=== PATIENT | female | born 1995 | race Caucasian/White ===

== ENCOUNTER 2016-08-29 11:55 | Emergency (ER) | payer OTHER ==
[2016-08-29] MEDS ORDERED: METOCLOPRAMIDE INJ 10MG/2ML VIAL (J2765) As Ordered ONE (13:32)
[2016-08-29 13:51] LABS: CONTROL LINE UCG INT CTR LINE PRESENT
[2016-08-29 14:01] LABS: CALCIUM OXALATE CRYSTALS SMALL
[2016-08-29] MEDS ORDERED: KETOROLAC 30 MG/ML VIAL (J1885) As Ordered ONE (14:24)
[2016-08-29] MEDS ORDERED: ONDANSETRON 4MG/2ML VIAL (J2405) As Ordered ONE (17:22)
--- NOTE | 2016-08-29 17:48 | REP ---
Clinical: Midline pelvic pain extending to the right lower quadrant. Rule out appendicitis. Technique: Real time hinojosa scale ultrasound examination of the right lower quadrant using curved array transducer. Findings: Directed ultrasound examination of the right lower quadrant demonstrates a normal structures without fluid collection, mass lesion, or significant adenopathy. Peristalsis of visualized bowel noted. The appendix is not visualized. No transducer tenderness noted. Impression: While the appendix is not visualized, no secondary sonographic evidence to suggest acute appendicitis. Signed by Benigno Cazares MD 08/29/2016 05:40 P
--- NOTE | 2016-08-29 17:50 | REP ---
Clinical: Pelvic pain. Rule out torsion . Technique: Transabdominal pelvic ultrasound with color Doppler evaluation of the ovaries. Findings: Bladder is unremarkable and measures 9.7 x 9.5 x 5.4 cm . Normal anteverted uterus measures 7.7 x 2.5 x 3.7 cm . The endometrial complex measures 2.7 mm thickness. No discrete uterine or endometrial abnormalities are appreciated. Bilateral ovaries are normal in appearance and vascularity without evidence for torsion. Right ovary measures 3.5 x 1.4 x 3.6 cm ; R I = 0.60 . Left ovary measures 2.9 x 1.8 x 2.9 cm ; R I = 0.69 . No pelvic fluid or adnexal mass lesion. . Impression: 1. Normal pelvic ultrasound. No evidence for torsion. Signed by Benigno Cazares MD 08/29/2016 05:42 P
--- NOTE | 2016-08-29 18:18 | EDDOCDS ---
Nurse's Notes [facility] Name: Nancy Ash Age: 21 yrs Sex: Female : 1995 Arrival Date: 08/29/2016 Time: 11:55 Bed 17 Private MD: NO PRIMARY PHYSICIAN, . Diagnosis: Vomiting Presentation: 08/29 12:09 Presenting complaint: Patient states: N/V and lower abd pain since this am. Drank a lot po last night without eating. Risk factors: the patient reports no vaginal bleeding. Adult Sepsis Screening: The patient does not have new or worsening altered mentation. Patient's respiratory rate is less than 22. Systolic blood pressure is greater than 100. Patient has a qSOFA score of 0- Negative Sepsis Screen. Suicide/Homicide risk assessment- the patient denies having any suicidal and/or homicidal ideations and does not present with any other emotional, behavioral or mental health complaints. Status: The patient is a dependent. Transition of care: patient was not received from another setting of care. 12:09 Acuity: ANDREW Level 3 po 12:09 Method Of Arrival: Walkin/Carried/Asstd po Triage Assessment: 12:10 General: Appears in no apparent distress, Behavior is appropriate for age. Pain: po Location: abdomen Pain currently is 10 out of 10 on a pain scale. Is continuous. HIV screening NA for this visit Offered previously. Neurological: No deficits noted. Respiratory: Airway is patent Respiratory effort is even, unlabored. GI: Reports lower abdominal pain, nausea, vomiting. 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 none - PMHx: none; - PSHx: none; - Social history: Smoking status: Patient uses tobacco products, current some day smoker. No barriers to communication noted, The patient speaks fluent Norwegian. - Family history: Not pertinent. - : The pt / caregiver states he / she is not on anticoagulants. Home medication list is obtained from the patient. - Exposure Risk Screening:: None identified. Screenin:05 Screening information is obtained from the patient. Primary language is Norwegian. Fall dls risk: No risks identified. Assistance ADL's: requires no assistance with activities of daily living. Abuse/DV Screen: The patient / caregiver reports he/she is: not in a situation that causes fear, pain or injury. Nutritional screening: No deficits noted. Advance Directives: Currently, there is no health care proxy. There is no active DNR order. There is no living will. There is no Power of Burial Vault Maker. Advance directive information has not previously been placed in an [facility] medical record. home support is adequate. Assessment: 14:04 General: Appears distressed, uncomfortable, well developed, well nourished, well dls groomed, Behavior is anxious, cooperative. Awake, alert, oriented. Skin warm and dry. Moves all extremities. Bilateral breath sounds clear. Respirations unlabored. The patient / caregiver is instructed regarding the plan of care and ED course. 15:37 General: IV bolus #2 infusing well pt continues to c/o nausea and abdominal pain "just dls wants to sleep" Mother at bedside.. 16:15 General: IV bolus infusing vital signs remain stable pt eating crackers and sipping dls gingerale.. 17:36 General: Pt returned from ultrasound appears much improved pt is now smiling medicated dls pt IV for nausea Dr Wyman in to re examine pt.. 18:08 General: Color has improved tolerating po fluids well feels much improved.. [facility] Vital Signs: 11:56 BP 145 / 80; Pulse 90; Resp 18; Temp 97.3(O); Pulse Ox 100% on R/A; Weight 63.5 kg; elp Height 5 ft. 3 in. (160.02 cm); Pain 10/10; 16:09 BP 101 / 50; Pulse 69; Resp 20; Temp 99.7(TE); Pulse Ox 100% on R/A; dls 18:11 BP 115 / 65; Pulse 103; Resp 18; Temp 99.5; Pulse Ox 98% ; Pain 3/10; jlf 11:56 Body Mass Index 24.80 (63.50 kg, 160.02 cm) [facility] Vitals: 11:56 Log In Time: August 29, 2016 at 11:54. [facility] ED Course: 11:56 Patient visited by Leanna Hardy PCA. elp 11:56 NO PRIMARY PHYSICIAN, . is Private Physician. elp 11:56 Patient moved to Waiting elp 11:57 Patient visited by Leanna Hardy PCA. elp 11:57 Patient moved to Pre RCE elp 12:10 Triage Initiated po 12:10 Arm band placed on right wrist. Patient placed in waiting room. po 12:12 Patient visited by Jerzy Valero RN. po 12:36 Patient moved to 17 ms18 12:44 Juju Rawls MD is Attending Physician. sd1 12:56 Patient visited by Juju Rawls MD. sd1 13:35 Patient visited by Makayla Wan PCA. jlf 13:54 Patient visited by Makayla Wan PCA. jlf 14:03 Inserted saline lock: 20 gauge in left antecubital area The patient tolerated the dls procedure well. No procedures done that require assistance. 14:05 Accompanied by Family Member, Patient has correct armband on for positive dls identification. Bed in low position. Call light in reach. Adult w/ patient. 14:21 Patient visited by Makayla Wan PCA. jlf 15:07 Patient visited by Makayla Wan PCA. jlf 15:47 Patient visited by Makayla Wan PCA. jlf 15:49 [facility] Payment Agreement was scanned into [employer] and attached to record. zo 15:53 Patient name changed from Nancy\\S\\\\S\\Tuliau\\S\\ to Nancy\\S\\ \\S\\Tuliau. EDMS 16:20 Patient visited by Makayla Wan PCA. jlf 16:52 Patient visited by Makayla Wan PCA. jlf 18:03 US Abd Limited Returned. EDMS 18:03 -US Pelvic Non-Ob Complete Returned. EDMS 18:09 Discontinued IV lock intact, bleeding controlled, pressure dressing applied, No dls redness/swelling at site. 18:11 Patient visited by Makayla Wan PCA. jlf 18:12 Patient visited by Makayla Wan PCA. jlf Administered Medications: 13:59 Drug: NS 0.9% 1000 ml [sodium chloride 0.9 % intravenous solution] Route: IV; Rate: dls bolus; Site: left antecubital; 15:29 Follow up: IV Status: Completed infusion; IV Intake: 1000ml dls 17:37 Follow up: IV Status: Completed infusion dls 13:59 Drug: Metoclopramide 10 mg [metoclopramide 5 mg/mL injection solution] Route: IV; Rate: dls 40 mg/hr; Infused Over: 15 mins; Site: left antecubital; 14:32 Drug: ketorolac 30 mg [ketorolac 30 mg/mL (1 mL) injection solution (1 mL)] Route: IVP; dls Site: left antecubital; 15:29 Drug: NS 0.9% 1000 ml [sodium chloride 0.9 % intravenous solution] Route: IV; Rate: dls bolus; Site: left antecubital; 17:35 Drug: Ondansetron 4 mg [ondansetron HCl 2 mg/mL intravenous solution (2 mL)] Route: dls IVP; Site: left antecubital; Intake: 15:29 IV: 1000.00ml; Total: 1000.00ml. dls Order Results: Lab Order: UA; SPEC'M 08/29/16 13:36 Test: APPEARANCE, URINE; Value: HAZY; Range: CLEAR; Status: F Test: COLOR, URINE; Value: YELLOW; Range: YELLOW; Status: F Test: PH,URINE; Value: 5.0; Range: 5.0-9.0; Units: UNITS; Status: F Test: SPECIFIC GRAVITY URINE AUTO; Value: 1.028; Range: 1.002-1.035; Status: F Test: PROTEIN, URINE AUTO; Value: 2+; Range: NEGATIVE; Abnormal: Above high normal; Units: mg/dL; Status: F Test: GLUCOSE, URINE (UA) AUTO; Value: NEGATIVE; Range: NEGATIVE; Units: mg/dL; Status: F Test: KETONE, URINE AUTO; Value: 2+; Range: NEGATIVE; Abnormal: Above high normal; Units: mg/dL; Status: F Test: UROBILINOGEN, URINE AUTO; Value: 0.2; Range: 0.0-2.0; Units: mg/dL; Status: F Test: BILIRUBIN, URINE AUTO; Value: NEGATIVE; Range: NEGATIVE; Status: F Test: NITRITE, URINE AUTO; Value: NEGATIVE; Range: NEGATIVE; Status: F Test: LEUKOCYTE ESTERASE, URINE AUTO; Value: NEGATIVE; Range: NEGATIVE; Status: F Test: BLOOD, URINE BLOOD; Value: 1+; Range: NEGATIVE; Abnormal: Above high normal; Status: F Test: SPERM, URINE AUTO; Range: NONE; Status: I Test: WBC, URINE AUTO; Value: 1; Range: 0-3; Units: /HPF; Status: F Test: RBC, URINE AUTO; Value: 3; Range: 0-3; Units: /HPF; Status: F Test: BACTERIA, URINE AUTO; Value: NEGATIVE; Range: NEGATIVE; Status: F Test: SQUAMOUS EPITHELIAL CELL UR AU; Value: 3; Range: 0-6; Units: /HPF; Status: F Test: MUCUS, URINE; Value: LARGE; Range: NEGATIVE; Status: F Test: HYALINE CAST, URINE AUTO; Value: 0; Range: 0-1; Units: /LPF; Status: F Test: CALCIUM OXALATE CRYSTALS; Value: SMALL; Range: NONE; Status: F Lab Order: UCG- In Lab; SPEC'M 08/29/16 13:36 Test: URINE PREG TEST; Value: NEGATIVE; Range: NEGATIVE; Status: F Radiology Order: -US Pelvic Non-Ob Complete Test: -US Pelvic Non-Ob Complete REASON FOR EXAMINATION: Adnexal Pain r/o Torsion; Clinical: Pelvic pain. Rule out torsion .; ; Technique: Transabdominal pelvic ultrasound with color Doppler evaluation of the; ovaries.; ; Findings:; ; Bladder is unremarkable and measures 9.7 x 9.5 x 5.4 cm .; ; Normal anteverted uterus measures 7.7 x 2.5 x 3.7 cm . The endometrial complex; measures 2.7 mm thickness. No discrete uterine or endometrial abnormalities are; appreciated.; ; Bilateral ovaries are normal in appearance and vascularity without evidence for; torsion. Right ovary measures 3.5 x 1.4 x 3.6 cm ; R I = 0.60 . Left ovary; measures 2.9 x 1.8 x 2.9 cm ; R I = 0.69 .; ; No pelvic fluid or adnexal mass lesion. .; ; Impression:; 1. Normal pelvic ultrasound. No evidence for torsion.; ; ; Signed by; Benigno Cazares MD 08/29/2016 05:42 P; Radiology Order: US Abd Limited Test: US Abd Limited REASON FOR EXAMINATION: Appendicitis; Clinical: Midline pelvic pain extending to the right lower quadrant. Rule out; appendicitis.; ; Technique: Real time hinojosa scale ultrasound examination of the right lower; quadrant using curved array transducer.; ; Findings:; Directed ultrasound examination of the right lower quadrant demonstrates a normal; structures without fluid collection, mass lesion, or significant adenopathy.; Peristalsis of visualized bowel noted. The appendix is not visualized. No; transducer tenderness noted.; ; Impression:; While the appendix is not visualized, no secondary sonographic evidence to; suggest acute appendicitis.; ; ; Signed by; Benigno Cazares MD 08/29/2016 05:40 P; Outcome: 17:54 Discharge ordered by Provider. sd1 18:10 Discharge Assessment: Patient awake, alert and oriented x 3. No cognitive and/or dls functional deficits noted. Patient verbalized understanding of disposition instructions. patient administered narcotics - no. The following High Risk Discharge criteria are identified: None. Discharged to home ambulatory, with parent. Condition: stable Condition: improved. Discharge instructions given to patient, parents Instructed on discharge instructions, follow up and referral plans. Demonstrated understanding of instructions, Pt was receptive of discharge instructions/ teaching. Ultrasound Study completed. Property :Personal belongings accompany Pt. 18:17 Patient left the ED. dls Signatures: Dispatcher [employer] EDMS Juju Rawls MD MD sd1 Jerzy Valero,RN RN Cherri Tomlinson RN RN dls Ijeoma Meraz Erin, COMPUTER OPERATIONS MANAGER COMPUTER OPERATIONS MANAGER elp Makayla Wan, COMPUTER OPERATIONS MANAGER COMPUTER OPERATIONS MANAGER Antionette Livingston,RN RN ms18 MTDD
--- NOTE | 2016-08-29 18:18 | EDDOCDS ---
Physician Documentation [facility] Name: Nancy Ash Age: 21 yrs Sex: Female : 1995 Arrival Date: 08/29/2016 Time: 11:55 Bed 17 Private MD: NO PRIMARY PHYSICIAN, . Disposition: 08/29/16 17:54 Discharged to Home/Self Care. Impression: Vomiting. - Condition is Stable. - Discharge Instructions: Nausea and Vomiting. - Prescriptions for ZOFRAN ODT 4 mg - dissolve 1 tablet by ORAL route 4 times per day As needed do not chew, do not swallow whole; 10 tablet. - Medication Reconciliation, Local Pharmacy Hours form. - Follow up: Emergency Department; When: Tomorrow; Reason: Recheck today's complaints. - Problem is new. - Symptoms are resolved. Historical: - Allergies: no known allergies; - Home Meds: 1. none - PMHx: none; - PSHx: none; - Social history: Smoking status: Patient uses tobacco products, current some day smoker. No barriers to communication noted, The patient speaks fluent French. - Family history: Not pertinent. - : The pt / caregiver states he / she is not on anticoagulants. Home medication list is obtained from the patient. - Exposure Risk Screening:: None identified. 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 3 in. (160.02 cm); Pain 10/10; 16:09 BP 101 / 50; Pulse 69; Resp 20; Temp 99.7(TE); Pulse Ox 100% on R/A; dls 18:11 BP 115 / 65; Pulse 103; Resp 18; Temp 99.5; Pulse Ox 98% ; Pain 3/10; jlf 11:56 Body Mass Index 24.80 (63.50 kg, 160.02 cm) elp MDM: 12:55 UA Ordered. EDMS 12:55 Urine Culture Ordered. EDMS 12:55 UCG- In Lab Ordered. EDMS 13:05 NS 0.9% 1000 ml IV at bolus once ordered. sd1 13:05 NS 0.9% 1000 ml IV at bolus once ordered. sd1 13:05 Metoclopramide 10 mg IV at 40 mg/hr once over 15 mins ordered. sd1 14:04 UA Reviewed. sd1 14:04 UCG- In Lab Reviewed. sd1 14:10 ketorolac 30 mg IVP once ordered. sd1 15:47 Financial registration complete. zo 15:49 [facility] [place] was scanned into [employer] and attached to record. zo 16:38 -US Pelvic Non-Ob Complete Ordered. EDMS 16:38 DUPLEX SCAN LIMITED (DOPPLER)+US Ordered. EDMS 16:38 US Abd Limited Ordered. EDMS 16:51 Ondansetron 4 mg IVP once ordered. sd1 Administered Medications: 13:59 Drug: NS 0.9% 1000 ml [sodium chloride 0.9 % intravenous solution] Route: IV; Rate: dls bolus; Site: left antecubital; 15:29 Follow up: IV Status: Completed infusion; IV Intake: 1000ml dls 17:37 Follow up: IV Status: Completed infusion dls 13:59 Drug: Metoclopramide 10 mg [metoclopramide 5 mg/mL injection solution] Route: IV; Rate: dls 40 mg/hr; Infused Over: 15 mins; Site: left antecubital; 14:32 Drug: ketorolac 30 mg [ketorolac 30 mg/mL (1 mL) injection solution (1 mL)] Route: IVP; dls Site: left antecubital; 15:29 Drug: NS 0.9% 1000 ml [sodium chloride 0.9 % intravenous solution] Route: IV; Rate: dls bolus; Site: left antecubital; 17:35 Drug: Ondansetron 4 mg [ondansetron HCl 2 mg/mL intravenous solution (2 mL)] Route: dls IVP; Site: left antecubital; Signatures: Dispatcher [employer] EDMS Juju Rawls MD MD sd1 Jerzy Valero RN RN po Scott, Debra, RN RN dls Olin, Zoeann zo The chart was reviewed and I authenticate all verbal orders and agree with the evaluation and treatment provided.Attachments: 15:49 [facility] [place] zo MTDD
--- NOTE | 2016-08-31 19:19 | EDDOCDS ---
Physician Documentation [facility] Name: Nancy Ash Age: 21 yrs Sex: Female : 1995 Arrival Date: 08/29/2016 Time: 11:55 Bed 17 Private MD: NO PRIMARY PHYSICIAN, . Disposition: 08/29/16 17:54 Discharged to Home/Self Care. Impression: Vomiting. - Condition is Stable. - Discharge Instructions: Nausea and Vomiting. - Prescriptions for ZOFRAN ODT 4 mg - dissolve 1 tablet by ORAL route 4 times per day As needed do not chew, do not swallow whole; 10 tablet. - Medication Reconciliation, Local Pharmacy Hours form. - Follow up: Emergency Department; When: Tomorrow; Reason: Recheck today's complaints. - Problem is new. - Symptoms are resolved. Historical: - Allergies: no known allergies; - Home Meds: 1. none - PMHx: none; - PSHx: none; - Social history: Smoking status: Patient uses tobacco products, current some day smoker. No barriers to communication noted, The patient speaks fluent Amharic. - Family history: Not pertinent. - : The pt / caregiver states he / she is not on anticoagulants. Home medication list is obtained from the patient. - Exposure Risk Screening:: None identified. 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 3 in. (160.02 cm); Pain 10/10; 16:09 BP 101 / 50; Pulse 69; Resp 20; Temp 99.7(TE); Pulse Ox 100% on R/A; dls 18:11 BP 115 / 65; Pulse 103; Resp 18; Temp 99.5; Pulse Ox 98% ; Pain 3/10; jlf 11:56 Body Mass Index 24.80 (63.50 kg, 160.02 cm) elp MDM: 12:55 UA Ordered. EDMS 12:55 Urine Culture Ordered. EDMS 12:55 UCG- In Lab Ordered. EDMS 13:05 NS 0.9% 1000 ml IV at bolus once ordered. sd1 13:05 NS 0.9% 1000 ml IV at bolus once ordered. sd1 13:05 Metoclopramide 10 mg IV at 40 mg/hr once over 15 mins ordered. sd1 14:04 UA Reviewed. sd1 14:04 UCG- In Lab Reviewed. sd1 14:10 ketorolac 30 mg IVP once ordered. sd1 15:47 Financial registration complete. zo 15:49 [facility] Payment Agreement was scanned into [employer] and attached to record. zo 16:38 -US Pelvic Non-Ob Complete Ordered. EDMS 16:38 DUPLEX SCAN LIMITED (DOPPLER)+US Ordered. EDMS 16:38 US Abd Limited Ordered. EDMS 16:51 Ondansetron 4 mg IVP once ordered. sd1 08/30 06:50 T-Sheet-- Draft Copy was scanned into [employer] and attached to record. hs2 Administered Medications: 08/29 13:59 Drug: NS 0.9% 1000 ml [sodium chloride 0.9 % intravenous solution] Route: IV; Rate: dls bolus; Site: left antecubital; 15:29 Follow up: IV Status: Completed infusion; IV Intake: 1000ml dls 17:37 Follow up: IV Status: Completed infusion dls 13:59 Drug: Metoclopramide 10 mg [metoclopramide 5 mg/mL injection solution] Route: IV; Rate: dls 40 mg/hr; Infused Over: 15 mins; Site: left antecubital; 14:32 Drug: ketorolac 30 mg [ketorolac 30 mg/mL (1 mL) injection solution (1 mL)] Route: IVP; dls Site: left antecubital; 15:29 Drug: NS 0.9% 1000 ml [sodium chloride 0.9 % intravenous solution] Route: IV; Rate: dls bolus; Site: left antecubital; 17:35 Drug: Ondansetron 4 mg [ondansetron HCl 2 mg/mL intravenous solution (2 mL)] Route: dls IVP; Site: left antecubital; Signatures: Dispatcher [employer] Juju Modi MD MD sd1 Jerzy Valero RN RN po Scott, Debra, RN RN dls Olin, Zoeann zo Stanton, Hillary, Reg Reg hs2 The chart was reviewed and I authenticate all verbal orders and agree with the evaluation and treatment provided.Attachments: 15:49 [facility] Payment Agreement zo 08/30 06:50 T-Sheet-- Draft Copy hs2 Chart Complete MTDD
--- NOTE | 2016-08-31 19:19 | EDDOCDS ---
Physician Documentation [facility] Name: Nancy Ash Age: 21 yrs Sex: Female : 1995 Arrival Date: 08/29/2016 Time: 11:55 Bed 17 Private MD: NO PRIMARY PHYSICIAN, . Disposition: 08/29/16 17:54 Discharged to Home/Self Care. Impression: Vomiting. - Condition is Stable. - Discharge Instructions: Nausea and Vomiting. - Prescriptions for ZOFRAN ODT 4 mg - dissolve 1 tablet by ORAL route 4 times per day As needed do not chew, do not swallow whole; 10 tablet. - Medication Reconciliation, Local Pharmacy Hours form. - Follow up: Emergency Department; When: Tomorrow; Reason: Recheck today's complaints. - Problem is new. - Symptoms are resolved. Historical: - Allergies: no known allergies; - Home Meds: 1. none - PMHx: none; - PSHx: none; - Social history: Smoking status: Patient uses tobacco products, current some day smoker. No barriers to communication noted, The patient speaks fluent Romanian. - Family history: Not pertinent. - : The pt / caregiver states he / she is not on anticoagulants. Home medication list is obtained from the patient. - Exposure Risk Screening:: None identified. 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 3 in. (160.02 cm); Pain 10/10; 16:09 BP 101 / 50; Pulse 69; Resp 20; Temp 99.7(TE); Pulse Ox 100% on R/A; dls 18:11 BP 115 / 65; Pulse 103; Resp 18; Temp 99.5; Pulse Ox 98% ; Pain 3/10; jlf 11:56 Body Mass Index 24.80 (63.50 kg, 160.02 cm) elp MDM: 12:55 UA Ordered. EDMS 12:55 Urine Culture Ordered. EDMS 12:55 UCG- In Lab Ordered. EDMS 13:05 NS 0.9% 1000 ml IV at bolus once ordered. sd1 13:05 NS 0.9% 1000 ml IV at bolus once ordered. sd1 13:05 Metoclopramide 10 mg IV at 40 mg/hr once over 15 mins ordered. sd1 14:04 UA Reviewed. sd1 14:04 UCG- In Lab Reviewed. sd1 14:10 ketorolac 30 mg IVP once ordered. sd1 15:47 Financial registration complete. zo 15:49 [facility] Payment Agreement was scanned into [employer] and attached to record. zo 16:38 -US Pelvic Non-Ob Complete Ordered. EDMS 16:38 DUPLEX SCAN LIMITED (DOPPLER)+US Ordered. EDMS 16:38 US Abd Limited Ordered. EDMS 16:51 Ondansetron 4 mg IVP once ordered. sd1 08/30 06:50 T-Sheet-- Draft Copy was scanned into [employer] and attached to record. hs2 Administered Medications: 08/29 13:59 Drug: NS 0.9% 1000 ml [sodium chloride 0.9 % intravenous solution] Route: IV; Rate: dls bolus; Site: left antecubital; 15:29 Follow up: IV Status: Completed infusion; IV Intake: 1000ml dls 17:37 Follow up: IV Status: Completed infusion dls 13:59 Drug: Metoclopramide 10 mg [metoclopramide 5 mg/mL injection solution] Route: IV; Rate: dls 40 mg/hr; Infused Over: 15 mins; Site: left antecubital; 14:32 Drug: ketorolac 30 mg [ketorolac 30 mg/mL (1 mL) injection solution (1 mL)] Route: IVP; dls Site: left antecubital; 15:29 Drug: NS 0.9% 1000 ml [sodium chloride 0.9 % intravenous solution] Route: IV; Rate: dls bolus; Site: left antecubital; 17:35 Drug: Ondansetron 4 mg [ondansetron HCl 2 mg/mL intravenous solution (2 mL)] Route: dls IVP; Site: left antecubital; Signatures: Dispatcher [employer] Juju Modi MD MD sd1 Jerzy Valero RN RN po Scott, Debra, RN RN dls Olin, Zoeann zo Stanton, Hillary, Reg Reg hs2 The chart was reviewed and I authenticate all verbal orders and agree with the evaluation and treatment provided.Attachments: 15:49 [facility] Payment Agreement zo 08/30 06:50 T-Sheet-- Draft Copy hs2 Chart Complete MTDD
--- NOTE | 2016-08-31 19:19 | EDDOCDS ---
Nurse's Notes [facility] Name: Nancy Ash Age: 21 yrs Sex: Female : 1995 Arrival Date: 08/29/2016 Time: 11:55 Bed 17 Private MD: NO PRIMARY PHYSICIAN, . Diagnosis: Vomiting Presentation: 08/29 12:09 Presenting complaint: Patient states: N/V and lower abd pain since this am. Drank a lot po last night without eating. Risk factors: the patient reports no vaginal bleeding. Adult Sepsis Screening: The patient does not have new or worsening altered mentation. Patient's respiratory rate is less than 22. Systolic blood pressure is greater than 100. Patient has a qSOFA score of 0- Negative Sepsis Screen. Suicide/Homicide risk assessment- the patient denies having any suicidal and/or homicidal ideations and does not present with any other emotional, behavioral or mental health complaints. Status: The patient is a dependent. Transition of care: patient was not received from another setting of care. 12:09 Acuity: ANDREW Level 3 po 12:09 Method Of Arrival: Walkin/Carried/Asstd po Triage Assessment: 12:10 General: Appears in no apparent distress, Behavior is appropriate for age. Pain: po Location: abdomen Pain currently is 10 out of 10 on a pain scale. Is continuous. HIV screening NA for this visit Offered previously. Neurological: No deficits noted. Respiratory: Airway is patent Respiratory effort is even, unlabored. GI: Reports lower abdominal pain, nausea, vomiting. 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 none - PMHx: none; - PSHx: none; - Social history: Smoking status: Patient uses tobacco products, current some day smoker. No barriers to communication noted, The patient speaks fluent Brazilian. - Family history: Not pertinent. - : The pt / caregiver states he / she is not on anticoagulants. Home medication list is obtained from the patient. - Exposure Risk Screening:: None identified. Screenin:05 Screening information is obtained from the patient. Primary language is Brazilian. Fall dls risk: No risks identified. Assistance ADL's: requires no assistance with activities of daily living. Abuse/DV Screen: The patient / caregiver reports he/she is: not in a situation that causes fear, pain or injury. Nutritional screening: No deficits noted. Advance Directives: Currently, there is no health care proxy. There is no active DNR order. There is no living will. There is no Power of Ring Attacher. Advance directive information has not previously been placed in an [facility] medical record. home support is adequate. Assessment: 14:04 General: Appears distressed, uncomfortable, well developed, well nourished, well dls groomed, Behavior is anxious, cooperative. Awake, alert, oriented. Skin warm and dry. Moves all extremities. Bilateral breath sounds clear. Respirations unlabored. The patient / caregiver is instructed regarding the plan of care and ED course. 15:37 General: IV bolus #2 infusing well pt continues to c/o nausea and abdominal pain "just dls wants to sleep" Mother at bedside.. 16:15 General: IV bolus infusing vital signs remain stable pt eating crackers and sipping dls gingerale.. 17:36 General: Pt returned from ultrasound appears much improved pt is now smiling medicated dls pt IV for nausea Dr Wyman in to re examine pt.. 18:08 General: Color has improved tolerating po fluids well feels much improved.. [facility] Vital Signs: 11:56 BP 145 / 80; Pulse 90; Resp 18; Temp 97.3(O); Pulse Ox 100% on R/A; Weight 63.5 kg; elp Height 5 ft. 3 in. (160.02 cm); Pain 10/10; 16:09 BP 101 / 50; Pulse 69; Resp 20; Temp 99.7(TE); Pulse Ox 100% on R/A; dls 18:11 BP 115 / 65; Pulse 103; Resp 18; Temp 99.5; Pulse Ox 98% ; Pain 3/10; jlf 11:56 Body Mass Index 24.80 (63.50 kg, 160.02 cm) [facility] Vitals: 11:56 Log In Time: August 29, 2016 at 11:54. [facility] ED Course: 11:56 Patient visited by Leanna Hardy PCA. elp 11:56 NO PRIMARY PHYSICIAN, . is Private Physician. elp 11:56 Patient moved to Waiting elp 11:57 Patient visited by Leanna Hardy PCA. elp 11:57 Patient moved to Pre RCE elp 12:10 Triage Initiated po 12:10 Arm band placed on right wrist. Patient placed in waiting room. po 12:12 Patient visited by Jerzy Valero RN. po 12:36 Patient moved to 17 ms18 12:44 Juju Rawls MD is Attending Physician. sd1 12:56 Patient visited by Juju Rawls MD. sd1 13:35 Patient visited by Makayla Wan PCA. jlf 13:54 Patient visited by Makayla Wan PCA. jlf 14:03 Inserted saline lock: 20 gauge in left antecubital area The patient tolerated the dls procedure well. No procedures done that require assistance. 14:05 Accompanied by Family Member, Patient has correct armband on for positive dls identification. Bed in low position. Call light in reach. Adult w/ patient. 14:21 Patient visited by Makayla Wan PCA. jlf 15:07 Patient visited by Makayla Wan PCA. jlf 15:47 Patient visited by Makayla Wan PCA. jlf 15:49 [facility] Payment Agreement was scanned into [employer] and attached to record. zo 15:53 Patient name changed from Nancy\\S\\\\S\\Tuliau\\S\\ to Nancy\\S\\ \\S\\Tuliau. EDMS 16:20 Patient visited by Makayla Wan PCA. jlf 16:52 Patient visited by Makayla Wan PCA. jlf 18:03 US Abd Limited Returned. EDMS 18:03 -US Pelvic Non-Ob Complete Returned. EDMS 18:09 Discontinued IV lock intact, bleeding controlled, pressure dressing applied, No dls redness/swelling at site. 18:11 Patient visited by Makayla Wan PCA. jlf 18:12 Patient visited by Makayla Wan PCA. jlf 08/30 06:50 T-Sheet-- Draft Copy was scanned into [employer] and attached to record. hs2 06:51 Patient visited by Nichole Caro Reg. hs2 Administered Medications: 08/29 13:59 Drug: NS 0.9% 1000 ml [sodium chloride 0.9 % intravenous solution] Route: IV; Rate: dls bolus; Site: left antecubital; 15:29 Follow up: IV Status: Completed infusion; IV Intake: 1000ml dls 17:37 Follow up: IV Status: Completed infusion dls 13:59 Drug: Metoclopramide 10 mg [metoclopramide 5 mg/mL injection solution] Route: IV; Rate: dls 40 mg/hr; Infused Over: 15 mins; Site: left antecubital; 14:32 Drug: ketorolac 30 mg [ketorolac 30 mg/mL (1 mL) injection solution (1 mL)] Route: IVP; dls Site: left antecubital; 15:29 Drug: NS 0.9% 1000 ml [sodium chloride 0.9 % intravenous solution] Route: IV; Rate: dls bolus; Site: left antecubital; 17:35 Drug: Ondansetron 4 mg [ondansetron HCl 2 mg/mL intravenous solution (2 mL)] Route: dls IVP; Site: left antecubital; Intake: 15:29 IV: 1000.00ml; Total: 1000.00ml. dls Order Results: Lab Order: UA; SPEC'M 08/29/16 13:36 Test: APPEARANCE, URINE; Value: HAZY; Range: CLEAR; Status: F Test: COLOR, URINE; Value: YELLOW; Range: YELLOW; Status: F Test: PH,URINE; Value: 5.0; Range: 5.0-9.0; Units: UNITS; Status: F Test: SPECIFIC GRAVITY URINE AUTO; Value: 1.028; Range: 1.002-1.035; Status: F Test: PROTEIN, URINE AUTO; Value: 2+; Range: NEGATIVE; Abnormal: Above high normal; Units: mg/dL; Status: F Test: GLUCOSE, URINE (UA) AUTO; Value: NEGATIVE; Range: NEGATIVE; Units: mg/dL; Status: F Test: KETONE, URINE AUTO; Value: 2+; Range: NEGATIVE; Abnormal: Above high normal; Units: mg/dL; Status: F Test: UROBILINOGEN, URINE AUTO; Value: 0.2; Range: 0.0-2.0; Units: mg/dL; Status: F Test: BILIRUBIN, URINE AUTO; Value: NEGATIVE; Range: NEGATIVE; Status: F Test: NITRITE, URINE AUTO; Value: NEGATIVE; Range: NEGATIVE; Status: F Test: LEUKOCYTE ESTERASE, URINE AUTO; Value: NEGATIVE; Range: NEGATIVE; Status: F Test: BLOOD, URINE BLOOD; Value: 1+; Range: NEGATIVE; Abnormal: Above high normal; Status: F Test: SPERM, URINE AUTO; Range: NONE; Status: I Test: WBC, URINE AUTO; Value: 1; Range: 0-3; Units: /HPF; Status: F Test: RBC, URINE AUTO; Value: 3; Range: 0-3; Units: /HPF; Status: F Test: BACTERIA, URINE AUTO; Value: NEGATIVE; Range: NEGATIVE; Status: F Test: SQUAMOUS EPITHELIAL CELL UR AU; Value: 3; Range: 0-6; Units: /HPF; Status: F Test: MUCUS, URINE; Value: LARGE; Range: NEGATIVE; Status: F Test: HYALINE CAST, URINE AUTO; Value: 0; Range: 0-1; Units: /LPF; Status: F Test: CALCIUM OXALATE CRYSTALS; Value: SMALL; Range: NONE; Status: F Lab Order: Urine Culture; SPEC'M 08/29/16 13:36 Test: URINE CULTURE; Value: URINE CULTURE RESULT NO GROWTH; Status: F Lab Order: UCG- In Lab; SPEC'M 08/29/16 13:36 Test: URINE PREG TEST; Value: NEGATIVE; Range: NEGATIVE; Status: F Radiology Order: -US Pelvic Non-Ob Complete Test: -US Pelvic Non-Ob Complete REASON FOR EXAMINATION: Adnexal Pain r/o Torsion; Clinical: Pelvic pain. Rule out torsion .; ; Technique: Transabdominal pelvic ultrasound with color Doppler evaluation of the; ovaries.; ; Findings:; ; Bladder is unremarkable and measures 9.7 x 9.5 x 5.4 cm .; ; Normal anteverted uterus measures 7.7 x 2.5 x 3.7 cm . The endometrial complex; measures 2.7 mm thickness. No discrete uterine or endometrial abnormalities are; appreciated.; ; Bilateral ovaries are normal in appearance and vascularity without evidence for; torsion. Right ovary measures 3.5 x 1.4 x 3.6 cm ; R I = 0.60 . Left ovary; measures 2.9 x 1.8 x 2.9 cm ; R I = 0.69 .; ; No pelvic fluid or adnexal mass lesion. .; ; Impression:; 1. Normal pelvic ultrasound. No evidence for torsion.; ; ; Signed by; Benigno Cazares MD 08/29/2016 05:42 P; Radiology Order: US Abd Limited Test: US Abd Limited REASON FOR EXAMINATION: Appendicitis; Clinical: Midline pelvic pain extending to the right lower quadrant. Rule out; appendicitis.; ; Technique: Real time hinojosa scale ultrasound examination of the right lower; quadrant using curved array transducer.; ; Findings:; Directed ultrasound examination of the right lower quadrant demonstrates a normal; structures without fluid collection, mass lesion, or significant adenopathy.; Peristalsis of visualized bowel noted. The appendix is not visualized. No; transducer tenderness noted.; ; Impression:; While the appendix is not visualized, no secondary sonographic evidence to; suggest acute appendicitis.; ; ; Signed by; Benigno Cazares MD 08/29/2016 05:40 P; Outcome: 17:54 Discharge ordered by Provider. sd1 18:10 Discharge Assessment: Patient awake, alert and oriented x 3. No cognitive and/or dls functional deficits noted. Patient verbalized understanding of disposition instructions. patient administered narcotics - no. The following High Risk Discharge criteria are identified: None. Discharged to home ambulatory, with parent. Condition: stable Condition: improved. Discharge instructions given to patient, parents Instructed on discharge instructions, follow up and referral plans. Demonstrated understanding of instructions, Pt was receptive of discharge instructions/ teaching. Ultrasound Study completed. Property :Personal belongings accompany Pt. 18:17 Patient left the ED. dls Signatures: Dispatcher [employer] EDMS Juju Rawls MD MD sd1 Jerzy Valero RN RN po Scott, Debra, RN RN dls Olin, Zoeann zo Patchen, Erin, [facility] Makayla Mcmahon, [facility] Antionette Livingston RN RN [id number] Nichole Caro, Reg Reg hs2 Chart Complete MTDD
== END 2016-08-29 18:17 | disposition home or self-care (01) ==
LOC: M ED 11:55
DX: R11.10 Vomiting, unspecified (principal); Z72.0 Tobacco use
CPT/HCPCS: 76705; 76856; 81001; 84703; 87086; 93976; 96361; 96374; 96375; 99284; J1885; J2405; J2765

== ENCOUNTER 2018-01-13 00:23 | Inpatient (IN) | payer SELFPAY, OTHER ==
[2018-01-13] MEDS: ONDANSETRON 4MG/2ML VIAL (J2405) IV ×2 (01:16→03:33)
[2018-01-13 01:17] LABS: BASO # 0.1 10^3/uL (0.0-0.2); BASO % 0.6 % (0.0-1.0); EOS % 0.2 % (0.0-3.0); HEMATOCRIT 37.7 % (36.0-47.0); HEMOGLOBIN 13.1 g/dl (12.0-15.5); IMMATURE GRANULOCYTE % 0.2 % (0-3.0); LYMPH % 24.3 % (24.0-44.0); MEAN CORPUSCULAR HEMOGLOBIN 31.3 pg (27.0-33.0); MEAN CORPUSCULAR HGB CONC 34.7 g/dl (32.0-36.5); MONO # 0.3 10^3/uL (0.0-0.8); MONO % 3.1 % (0.0-5.0); NEUTROPHILS % 71.6 % (36.0-66.0); PLATELET COUNT, AUTOMATED 197 10^3/uL (150-450); RED BLOOD COUNT 4.19 10^6/uL (4.00-5.40); RED CELL DISTRIBUTION WIDTH 12.5 % (11.5-14.5); WHITE BLOOD COUNT 8.4 10^3/uL (4.0-10.0)
[2018-01-13] MEDS: MORPHINE 4 MG/ML 1ML VIAL/SYRINGE (J2270) IV ×2 (01:26→06:32)
[2018-01-13] MEDS: NS 1,000 ML IV ×2 (01:26→06:32)
[2018-01-13 01:51] LABS: CONTROL LINE HCG INT CTR LINE PRESENT; HCG, SERUM QUALITATIVE NEGATIVE (NEGATIVE)
[2018-01-13 01:59] LABS: ALBUMIN 4.5 GM/DL (3.2-5.2); ALBUMIN/GLOBULIN RATIO 1.32 (1.00-1.93); ALKALINE PHOSPHATASE 43 U/L (45-117); ALT/SGPT 19 U/L (12-78); ANION GAP 12 MEQ/L (8-16); AST/SGOT 22 U/L (7-37); BILIRUBIN,DIRECT 0.2 MG/DL (0.0-0.2); BILIRUBIN,TOTAL 0.8 MG/DL (0.2-1.0); BLOOD UREA NITROGEN 16 MG/DL (7-18); CALCIUM LEVEL 9.3 MG/DL (8.5-10.1); CARBON DIOXIDE LEVEL 23 MEQ/L (21-32); CHLORIDE LEVEL 107 MEQ/L (98-107); CREATININE FOR GFR 0.92 MG/DL (0.55-1.30); GLOMERULAR FILTRATION RATE > 60.0 (>60); GLUCOSE, FASTING 150 MG/DL (70-100); LIPASE 103 U/L (73-393); POTASSIUM SERUM 3.3 MEQ/L (3.5-5.1); SODIUM LEVEL 142 MEQ/L (136-145); TOTAL PROTEIN 7.9 GM/DL (6.4-8.2)
[2018-01-13] MEDS ORDERED: GASTROGRAFIN SOLUTION 30ML (Q9963) As Ordered (02:03)
[2018-01-13] MEDS ORDERED: POTASSIUM CHLORIDE 10 MEQ SR TABLET As Ordered (02:04)
[2018-01-13] MEDS: POTASSIUM CHLORIDE 10 MEQ SR TABLET PO (02:20)
[2018-01-13] MEDS: GASTROGRAFIN SOLUTION 30ML PO ×2 (02:28→02:48)
[2018-01-13] MEDS ORDERED: ISOVUE-370 76% 100ML VIAL (Q9967) As Ordered (03:53)
[2018-01-13 04:27] LABS: KETONE, URINE AUTO RFX 2+ mg/dL (NEGATIVE); LEUKOCYTE ESTERASE UR AUTO RFX NEGATIVE (NEGATIVE); NITRITE, URINE AUTO RFX NEGATIVE (NEGATIVE); RBC, URINE AUTO RFX 1 /HPF (0-3); SPECIFIC GRAVITY UR AUTO RFX 1.025 (1.002-1.035); SQUAM EPITHELIAL CELL UR AURFX 0 /HPF (0-6); WBC, URINE AUTO RFX 0 /HPF (0-3)
[2018-01-13] MEDS: KETOROLAC 30 MG/ML VIAL (J1885) IV (04:37)
[2018-01-13] MEDS: AMPICILLIN SOD/SULBACTAM SOD 3 GM in D5W MINI-BAG PLUS 100 ML IV ×4 (06:32→21:54)
[2018-01-13] MEDS: LR 1,000 ML IV ×2 (06:36→14:21)
[2018-01-13] MEDS ORDERED: ACETAMINOPHEN TAB 650MG DOSE (2X325MG) PO (06:45)
[2018-01-13] MEDS ORDERED: MORPHINE 4 MG/ML 1ML VIAL/SYRINGE (J2270) IV (06:45)
[2018-01-13] MEDS ORDERED: NORCO, ANEXSIA 5/325MG TABLET (HYDROcodone/ACETAMINOPHEN) PO (06:45)
[2018-01-13] MEDS ORDERED: ONDANSETRON 4MG/2ML VIAL (J2405) IV ×2 (06:45→18:45)
[2018-01-13] MEDS: PANTOPRAZOLE 40MG INJ (PROTONIX) (C9113) IV (09:45)
[2018-01-13] MEDS ORDERED: BUPIVACAINE HCL 0.25% 30 ML VIAL As Ordered (13:17)
[2018-01-13] MEDS ORDERED: LIDOCAINE 1% SDV INJ 30 ML VIAL As Ordered (13:17)
[2018-01-13] MEDS ORDERED: MIDAZOLAM INJ 2 MG/2 ML VIAL (J2250) As Ordered (17:25)
[2018-01-13] MEDS ORDERED: fentaNYL 250 MCG/5 ML INJECTION (J3010) As Ordered (17:25)
[2018-01-13] MEDS ORDERED: KETOROLAC 60 MG/2 ML VIAL (J1885) As Ordered (17:26)
[2018-01-13] MEDS ORDERED: NEOSTIGMINE 10 MG/10 ML VIAL (J2710) As Ordered (17:26)
[2018-01-13] MEDS ORDERED: GLYCOPYRROLATE INJ 0.2 MG/ML 2 ML VIAL As Ordered ×2 (17:26)
[2018-01-13] MEDS ORDERED: LIDOCAINE 2% INJ 100 MG/5 ML SDV (FOR ANES.) As Ordered (17:26)
[2018-01-13] MEDS ORDERED: ROCURONIUM BROMIDE 50 MG/5 ML VIAL As Ordered (17:26)
[2018-01-13] MEDS ORDERED: dexameTHASONE 4 MG/ML 1ML VIAL (J1100) As Ordered ×2 (17:26)
[2018-01-13] MEDS ORDERED: ONDANSETRON 4MG/2ML VIAL (J2405) As Ordered (17:26)
[2018-01-13] MEDS ORDERED: METOCLOPRAMIDE INJ 10MG/2ML VIAL (J2765) As Ordered (17:26)
[2018-01-13] MEDS ORDERED: PROPOFOL 200 MG/20 ML VIAL As Ordered (17:26)
[2018-01-13] MEDS: PERCOCET 5MG/325MG TAB PO ×2 (18:35→19:08)
[2018-01-13] MEDS ORDERED: fentaNYL 100 MCG/2 ML INJECTION (J3010) As Ordered (18:35)
[2018-01-13] MEDS ORDERED: PERCOCET 5MG/325MG TAB As Ordered ×2 (18:35→19:08)
[2018-01-13] MEDS: fentaNYL 100 MCG/2 ML INJECTION (J3010) IV ×4 (18:35→18:50)
[2018-01-13] MEDS ORDERED: HYDROMORPHONE HCL 0.5 MG/ 0.5 ML SYRINGE (J1170 PER 1) IV (18:45)
[2018-01-13] MEDS ORDERED: METOCLOPRAMIDE INJ 10MG/2ML VIAL (J2765) IV (18:45)
[2018-01-13] MEDS ORDERED: LR 1,000 ML IV (18:45)
[2018-01-13] MEDS: NORCO, ANEXSIA 5/325MG TABLET (HYDROcodone/ACETAMINOPHEN) PO (21:55)
[2018-01-14] MEDS: KETOROLAC 30 MG/ML VIAL (J1885) IV ×2 (01:35→08:42)
[2018-01-14] MEDS: AMPICILLIN SOD/SULBACTAM SOD 3 GM in D5W MINI-BAG PLUS 100 ML IV ×2 (04:00→11:10)
[2018-01-14] MEDS: NORCO, ANEXSIA 5/325MG TABLET (HYDROcodone/ACETAMINOPHEN) PO ×2 (05:11→11:00)
[2018-01-14 06:52] LABS: BASO % 0.1 % (0.0-1.0); HEMATOCRIT 39.3 % (36.0-47.0); HEMOGLOBIN 13.6 g/dl (12.0-15.5); IMMATURE GRANULOCYTE % 0.5 % (0-3.0); LYMPH # 1.7 10^3/uL (1.5-6.5); LYMPH % 15.6 % (24.0-44.0); MEAN CORPUSCULAR HEMOGLOBIN 31.4 pg (27.0-33.0); MEAN CORPUSCULAR HGB CONC 34.6 g/dl (32.0-36.5); MEAN CORPUSCULAR VOLUME 90.8 fl (80.0-96.0); MONO # 0.5 10^3/uL (0.0-0.8); MONO % 4.9 % (0.0-5.0); NEUTROPHILS # 8.7 10^3/uL (1.8-7.7); NEUTROPHILS % 78.9 % (36.0-66.0); PLATELET COUNT, AUTOMATED 214 10^3/uL (150-450); RED BLOOD COUNT 4.33 10^6/uL (4.00-5.40); RED CELL DISTRIBUTION WIDTH 12.5 % (11.5-14.5); WHITE BLOOD COUNT 11.1 10^3/uL (4.0-10.0)
[2018-01-14 07:28] LABS: ALBUMIN 4.2 GM/DL (3.2-5.2); ALBUMIN/GLOBULIN RATIO 1.17 (1.00-1.93); ALKALINE PHOSPHATASE 42 U/L (45-117); ALT/SGPT 38 U/L (12-78); ANION GAP 7 MEQ/L (8-16); AST/SGOT 33 U/L (7-37); BILIRUBIN,TOTAL 0.7 MG/DL (0.2-1.0); BLOOD UREA NITROGEN 7 MG/DL (7-18); CALCIUM LEVEL 8.7 MG/DL (8.5-10.1); CARBON DIOXIDE LEVEL 27 MEQ/L (21-32); CHLORIDE LEVEL 106 MEQ/L (98-107); CREATININE FOR GFR 0.75 MG/DL (0.55-1.30); GLOMERULAR FILTRATION RATE > 60.0 (>60); GLUCOSE, FASTING 126 MG/DL (70-100); POTASSIUM SERUM 3.3 MEQ/L (3.5-5.1); SODIUM LEVEL 140 MEQ/L (136-145); TOTAL PROTEIN 7.8 GM/DL (6.4-8.2)
[2018-01-14] MEDS: PANTOPRAZOLE 40MG INJ (PROTONIX) (C9113) IV (08:42)
[2018-01-14] MEDS ORDERED: IBUPROFEN 600 MG TAB PO (12:00)
== END 2018-01-14 13:25 | disposition home or self-care (01) | DRG 263 ==
LOC: M ED 00:23 → M ED INP 06:36 → M MSPAV 10:05 → M PED 22:48
PROC: 0FT44ZZ Resection of Gallbladder, Percutaneous Endoscopic Approach (ICD-10-PCS; principal; 2018-01-13 08:02)
DX: K80.00 Calculus of gallbladder with acute cholecystitis without obstruction (principal); F17.210 Nicotine dependence, cigarettes, uncomplicated; K52.9 Noninfective gastroenteritis and colitis, unspecified

== ENCOUNTER 2018-01-18 01:25 | Inpatient (IN) | payer MEDICAID, SELFPAY ==
[2018-01-18] MEDS: ONDANSETRON 4MG/2ML VIAL (J2405) IV ×3 (01:45→19:03)
[2018-01-18] MEDS: NS 1,000 ML IV (01:45)
[2018-01-18] MEDS: MORPHINE 4 MG/ML 1ML VIAL/SYRINGE (J2270) IV ×6 (02:13→20:29)
[2018-01-18 02:16] LABS: BASO % 0.2 % (0.0-1.0); EOS % 0.4 % (0.0-3.0); HEMATOCRIT 42.7 % (36.0-47.0); HEMOGLOBIN 14.9 g/dl (12.0-15.5); IMMATURE GRANULOCYTE % 0.3 % (0-3.0); LYMPH # 1.1 10^3/uL (1.5-6.5); LYMPH % 9.9 % (24.0-44.0); MEAN CORPUSCULAR HEMOGLOBIN 30.8 pg (27.0-33.0); MEAN CORPUSCULAR HGB CONC 34.9 g/dl (32.0-36.5); MEAN CORPUSCULAR VOLUME 88.4 fl (80.0-96.0); MONO # 0.5 10^3/uL (0.0-0.8); MONO % 4.2 % (0.0-5.0); NEUTROPHILS # 9.6 10^3/uL (1.8-7.7); PLATELET COUNT, AUTOMATED 231 10^3/uL (150-450); RED BLOOD COUNT 4.83 10^6/uL (4.00-5.40); RED CELL DISTRIBUTION WIDTH 12.2 % (11.5-14.5); WHITE BLOOD COUNT 11.2 10^3/uL (4.0-10.0)
[2018-01-18 02:21] LABS: CONTROL LINE HCG INT CTR LINE PRESENT; HCG, SERUM QUALITATIVE NEGATIVE (NEGATIVE)
[2018-01-18 02:29] LABS: ALBUMIN 4.3 GM/DL (3.2-5.2); ALBUMIN/GLOBULIN RATIO 1.05 (1.00-1.93); ALKALINE PHOSPHATASE 118 U/L (45-117); ALT/SGPT 372 U/L (12-78); ANION GAP 11 MEQ/L (8-16); AST/SGOT 227 U/L (7-37); BILIRUBIN,DIRECT 0.3 MG/DL (0.0-0.2); BILIRUBIN,TOTAL 1.1 MG/DL (0.2-1.0); BLOOD UREA NITROGEN 12 MG/DL (7-18); CALCIUM LEVEL 9.2 MG/DL (8.5-10.1); CARBON DIOXIDE LEVEL 26 MEQ/L (21-32); CHLORIDE LEVEL 101 MEQ/L (98-107); CREATININE FOR GFR 0.76 MG/DL (0.55-1.30); GLOMERULAR FILTRATION RATE > 60.0 (>60); GLUCOSE, FASTING 150 MG/DL (70-100); LIPASE 119 U/L (73-393); POTASSIUM SERUM 3.1 MEQ/L (3.5-5.1); SODIUM LEVEL 138 MEQ/L (136-145); TOTAL PROTEIN 8.4 GM/DL (6.4-8.2)
[2018-01-18 02:43] LABS: LACTIC ACID SEPSIS PROTOCOL 3.4 MMOL/L (0.4-2.0)
[2018-01-18] MEDS ORDERED: ISOVUE-370 76% 100ML VIAL (Q9967) As Ordered (03:03)
[2018-01-18] MEDS: HYDROmorphone HCL 1 MG/ML SYRINGE (J1170) IV (03:10)
[2018-01-18] MEDS: LORazepam 2 MG/ML VIAL (J2060) IV (03:12)
[2018-01-18] MEDS ORDERED: MORPHINE 4 MG/ML 1ML VIAL/SYRINGE (J2270) IV (05:45)
[2018-01-18] MEDS ORDERED: ACETAMINOPHEN TAB 650MG DOSE (2X325MG) PO (05:45)
[2018-01-18] MEDS: AMPICILLIN SOD/SULBACTAM SOD 3 GM in D5W MINI-BAG PLUS 100 ML IV ×4 (06:01→23:19)
[2018-01-18] MEDS: LR 1,000 ML IV ×4 (06:01→23:30)
[2018-01-18 08:31] LABS: ALBUMIN 3.6 GM/DL (3.2-5.2); ALBUMIN/GLOBULIN RATIO 1.16 (1.00-1.93); ALKALINE PHOSPHATASE 95 U/L (45-117); ALT/SGPT 300 U/L (12-78); ANION GAP 6 MEQ/L (8-16); AST/SGOT 153 U/L (7-37); BILIRUBIN,TOTAL 0.7 MG/DL (0.2-1.0); BLOOD UREA NITROGEN 9 MG/DL (7-18); CALCIUM LEVEL 8.2 MG/DL (8.5-10.1); CARBON DIOXIDE LEVEL 29 MEQ/L (21-32); CHLORIDE LEVEL 105 MEQ/L (98-107); CREATININE FOR GFR 0.56 MG/DL (0.55-1.30); GLOMERULAR FILTRATION RATE > 60.0 (>60); GLUCOSE, FASTING 134 MG/DL (70-100); POTASSIUM SERUM 3.5 MEQ/L (3.5-5.1); SODIUM LEVEL 140 MEQ/L (136-145); TOTAL PROTEIN 6.7 GM/DL (6.4-8.2)
[2018-01-18] MEDS: PROMETHAZINE INJ 25 MG/ML VIAL (J2550) IV (12:51)
[2018-01-18] MEDS ORDERED: ROCURONIUM BROMIDE 50 MG/5 ML VIAL As Ordered (16:07)
[2018-01-18] MEDS ORDERED: fentaNYL 100 MCG/2 ML INJECTION (J3010) As Ordered (16:07)
[2018-01-18] MEDS ORDERED: MIDAZOLAM INJ 2 MG/2 ML VIAL (J2250) As Ordered (16:07)
[2018-01-18] MEDS ORDERED: PROPOFOL 200 MG/20 ML VIAL As Ordered (16:07)
[2018-01-18] MEDS ORDERED: LIDOCAINE 2% INJ 100 MG/5 ML SDV (FOR ANES.) As Ordered (16:07)
[2018-01-18] MEDS: ISOVUE-300 61% 50ML VIAL (Q9967) As Ordered (16:50)
[2018-01-18] MEDS ORDERED: GLYCOPYRROLATE INJ 0.2 MG/ML 2 ML VIAL As Ordered (16:51)
[2018-01-18] MEDS ORDERED: NEOSTIGMINE 10 MG/10 ML VIAL (J2710) As Ordered (16:51)
[2018-01-18] MEDS ORDERED: ONDANSETRON 4MG/2ML VIAL (J2405) As Ordered (16:51)
[2018-01-18] MEDS ORDERED: dexameTHASONE 4 MG/ML 1ML VIAL (J1100) As Ordered ×2 (16:51→16:52)
[2018-01-18] MEDS ORDERED: fentaNYL 100 MCG/2 ML INJECTION (J3010) IV (17:45)
[2018-01-18] MEDS ORDERED: HYDROMORPHONE HCL 0.5 MG/ 0.5 ML SYRINGE (J1170 PER 1) IV (17:45)
[2018-01-18] MEDS ORDERED: PERCOCET 5MG/325MG TAB PO (17:45)
[2018-01-18] MEDS ORDERED: METOCLOPRAMIDE INJ 10MG/2ML VIAL (J2765) IV (17:45)
[2018-01-18] MEDS ORDERED: ONDANSETRON 4MG/2ML VIAL (J2405) IV (17:45)
[2018-01-18] MEDS: NORCO, ANEXSIA 5/325MG TABLET (HYDROcodone/ACETAMINOPHEN) PO (21:02)
[2018-01-19] MEDS: MORPHINE 4 MG/ML 1ML VIAL/SYRINGE (J2270) IV ×2 (00:03→07:43)
[2018-01-19] MEDS: AMPICILLIN SOD/SULBACTAM SOD 3 GM in D5W MINI-BAG PLUS 100 ML IV ×2 (05:11→12:00)
[2018-01-19] MEDS: NORCO, ANEXSIA 5/325MG TABLET (HYDROcodone/ACETAMINOPHEN) PO (05:12)
[2018-01-19] MEDS: LR 1,000 ML IV ×2 (05:12→08:04)
[2018-01-19] MEDS: ONDANSETRON 4MG/2ML VIAL (J2405) IV (08:03)
== END 2018-01-19 14:05 | disposition home or self-care (01) ==
LOC: M ED 01:25 → M ED INP 05:41 → M MS5PR 08:50
PROC: 0F798ZZ Dilation of Common Bile Duct, Via Natural or Artificial Opening Endoscopic (ICD-10-PCS; principal; 2018-01-18 09:28)
DX: K80.51 Calculus of bile duct without cholangitis or cholecystitis with obstruction (principal); Z90.49 Acquired absence of other specified parts of digestive tract; Z79.899 Other long term (current) drug therapy

== ENCOUNTER → 2020-11-24 | Outpatient (REF) | payer OTHER ==
[~2020-11-24] MED LIST: HYDR-3715 PO; IBUP-1022 PO; IBUP1TAB6 PO; NORC1TAB7 PO; TRI-TAB16 PO; ZOFR4TAB16 PO
[2020-11-24 15:27] LABS: HEMATOCRIT 39.7 % (36.0-47.0); HEMOGLOBIN 13.5 g/dl (12.0-15.5); MEAN CORPUSCULAR VOLUME 88.2 fl (80.0-96.0); PLATELET COUNT, AUTOMATED 215 10^3/uL (150-450); WHITE BLOOD COUNT 6.8 10^3/uL (4.0-10.0)
[2020-11-24 16:44] LABS: HEPATITIS C VIRUS ABY INDEX < 0.0 INDEX (<0.8); HIV 1&2 SCREEN CENTAUR NEGATIVE (NEGATIVE)
[2020-11-24 16:54] LABS: CHLAMYDIA DNA AMPLIFICATION NEGATIVE (NEGATIVE); GC DNA AMPLIFICATION NEGATIVE (NEGATIVE)
== END ==
LOC: M PLALAB 13:38
PROVIDERS: ATTEND Advanced Practice Midwife
DX: Z36.89 Encounter for other specified antenatal screening (principal); Z3A.01 Less than 8 weeks gestation of pregnancy

== ENCOUNTER → 2021-01-14 | Outpatient (CLI) | payer OTHER ==
--- NOTE | 2021-01-14 10:48 | REP ---
INDICATION: ANATOMY COMPARISON: None. TECHNIQUE: Transabdominal obstetrical ultrasound with color Doppler evaluation. FINDINGS: Examination demonstrates a single live intrauterine in breech presentation. motion is identified by technologist. Placenta is noted posterior and grade 1 without evidence for placenta previa or abruption. Amniotic fluid volume is normal. Cervix measures 4.7 cm in length and appears closed.. Gestational age by LMP 18 weeks 0 days with ALBERT 06/17/2021. Gestational age by current measurements 18 weeks 2 days with ALBERT 06/15/2021. FHR equals 167 beats per minute. Estimated weight 234 grams (65thpercentile). Anatomical assessment demonstrates normal structures including cranium, choroid plexus, cavum, cerebellum/posterior fossa, facial features, lungs, diaphragm, stomach, cord insertion/three-vessel cord, kidneys/bladder, spine, and extremities. IMPRESSION: Single live intrauterine in breech presentation demonstrating appropriate estimated weight. Limited evaluation of the heart/ventricular outflow tracts. Remainder of the anatomical assessment is complete and normal. <Electronically signed by Benigno Cazares > 01/14/21 104
== END ==
LOC: M WHC 08:47
PROVIDERS: ATTEND Advanced Practice Midwife
DX: Z36.89 Encounter for other specified antenatal screening (principal)

== ENCOUNTER → 2021-01-22 | Outpatient (CLI) | payer OTHER | LOC: M PLALAB 12:05 | PROVIDERS: ATTEND Advanced Practice Midwife | DX: Z34.81 Encounter for supervision of other normal pregnancy, first trimester (principal) ==

== ENCOUNTER → 2021-02-11 | Outpatient (CLI) | payer OTHER ==
--- NOTE | 2021-02-11 15:56 | REP ---
INDICATION: F/U ANATOMY. Particularly the heart and outflow tracts COMPARISON: None. TECHNIQUE: Transabdominal scanning FINDINGS: Multiple ultrasonographic images of the gravid uterus shows a single living intrauterine gestation in the transverse presentation. The placenta is posterior and not low-lying. Doppler interrogation of the heart shows a heart rate of 160 beats per minute. The cervix measures 4 cm length and is closed. The subjective amniotic fluid volume is within normal limits. BPD: 5.1 cm 21 weeks 3 days HC: 19.6 cm 21 weeks 6 days AC: 16.8 cm 21 weeks 5 days FL: 3.7 cm 21 weeks 5 days The estimated weight is 449 g which is at the 32nd percentile for a 22 week 0 day gestational age. Both right and left ventricular outflow tracts were seen as unremarkable today. Once again, optimal visualization of the four-chamber heart could not be obtained. IMPRESSION: Single living intrauterine gestation as described above with an estimated gestational age of 22 weeks 0 days via composite criteria and an estimated date of delivery of 06/17/2021 by today's exam. No anomalies were detected, however, I recommend a follow-up examination to better visualize a four-chamber heart. <Electronically signed by Jose Stockton > 02/11/21 [id number]
== END ==
LOC: M WHC 10:53
PROVIDERS: ATTEND Advanced Practice Midwife
DX: Z34.02 Encounter for supervision of normal first pregnancy, second trimester (principal)

== ENCOUNTER → 2021-03-06 | Outpatient (CLI) | payer OTHER ==
[~2021-03-06] MED LIST changes: +ACET-907 PO; +DOCU100C16 PO; +IBUP80TA PO; +OMEP40CA4 PO; +PERCOCET PO; +PRENTAB9 PO
== END ==
LOC: M WHC 07:22
PROVIDERS: ATTEND Advanced Practice Midwife
DX: Z34.02 Encounter for supervision of normal first pregnancy, second trimester (principal); Z3A.25 25 weeks gestation of pregnancy

== ENCOUNTER → 2021-03-17 | Outpatient (CLI) | payer OTHER ==
[~2021-03-17] MED LIST changes: -ACET-907 PO; -DOCU100C16 PO; -IBUP80TA PO; -OMEP40CA4 PO; -PERCOCET PO; -PRENTAB9 PO
[2021-03-17 14:26] LABS: HEMOGLOBIN 11.4 g/dl (12.0-15.5); MEAN CORPUSCULAR HEMOGLOBIN 30.6 pg (27.0-33.0); MEAN CORPUSCULAR HGB CONC 32.6 g/dl (32.0-36.5); MEAN CORPUSCULAR VOLUME 94.1 fl (80.0-96.0); PLATELET COUNT, AUTOMATED 193 10^3/uL (150-450); RED BLOOD COUNT 3.72 10^6/uL (4.00-5.40); WHITE BLOOD COUNT 8.8 10^3/uL (4.0-10.0)
== END ==
LOC: M PLALAB 08:44
PROVIDERS: ATTEND Advanced Practice Midwife
DX: Z34.02 Encounter for supervision of normal first pregnancy, second trimester (principal)

== ENCOUNTER → 2021-05-26 | Outpatient (REF) | payer OTHER | LOC: M SFHCWAGY 13:05 | PROVIDERS: ATTEND Obstetrics & Gynecology | DX: Z34.03 Encounter for supervision of normal first pregnancy, third trimester (principal); Z3A.00 Weeks of gestation of pregnancy not specified ==

== ENCOUNTER 2021-06-06 13:04 | Inpatient (IN) | payer OTHER ==
[2021-06-06] VITALS (15 sets, daily range): BP systolic 97–142; BP diastolic 53–85
[~2021-06-06] VITALS: Ht 160 cm; Wt 83.2 kg
[2021-06-06] MEDS ORDERED: ACET-907 PO (13:42)
[2021-06-06] MEDS ORDERED: OMEP40CA4 PO (13:42)
[2021-06-06] MEDS ORDERED: PRENTAB9 PO (13:42)
[2021-06-06] MEDS ORDERED: HOME MED LIST COMPLETE! XX SCH (13:45)
[2021-06-06] MEDS ORDERED: LACTATED RINGER'S 1000 ML IV STA (14:32)
[2021-06-06] MEDS ORDERED: TRANEXAMIC ACID INJection 1,000 MG in NS 100 ML IV PRN (14:35)
[2021-06-06] MEDS ORDERED: LIDOCAINE 1% MDV 20ML VIAL INFIL PRN (14:35)
[2021-06-06] MEDS ORDERED: METHYLERGONOVINE MALEATE 0.2 MG/ML VIAL (J2210) IM PRN (14:35)
[2021-06-06] MEDS ORDERED: CARBOPROST TROMETHAMINE 250 MCG/ML AMP IM PRN (14:35)
[2021-06-06] MEDS ORDERED: LR 1,000 ML IV SCH (14:35)
[2021-06-06 14:59] LABS: HEMATOCRIT 31.6 % (36.0-47.0); HEMOGLOBIN 10.5 g/dl (12.0-15.5); MEAN CORPUSCULAR HEMOGLOBIN 29.4 pg (27.0-33.0); MEAN CORPUSCULAR HGB CONC 33.2 g/dl (32.0-36.5); MEAN CORPUSCULAR VOLUME 88.5 fl (80.0-96.0); PLATELET COUNT, AUTOMATED 150 10^3/uL (150-450); RED BLOOD COUNT 3.57 10^6/uL (4.00-5.40); WHITE BLOOD COUNT 8.5 10^3/uL (4.0-10.0)
[2021-06-06] MEDS ORDERED: OXYTOCIN DRIP 30 UNITS in IV 1 EA IV SCH ×2 (15:35→15:40)
[2021-06-06] MEDS ORDERED: FENTANYL 2MCG/ML ROPIVACAINE 0.2% IN 0.9% NACL 100ML IVBAG As Ordered ONE (19:16)
[2021-06-06] MEDS ORDERED: diphenhydrAMINE 50MG/ML VIAL (J1200) IV PRN (20:40)
[2021-06-06] MEDS ORDERED: REFRIGERATOR IV KEYS XX PRN (20:40)
[2021-06-06] MEDS ORDERED: ONDANSETRON 4MG/2ML VIAL IV PRN (20:40)
[2021-06-06] MEDS ORDERED: ePHEDrine SULFATE 25 MG/5 ML(5MG/ML) SYRINGE IV PRN (20:40)
[2021-06-06] MEDS ORDERED: NALOXONE INJ 0.4MG/1ML VIAL (J2310 PER 1MG) IV PRN (20:40)
[2021-06-06] MEDS ORDERED: LACTATED RINGER'S 1000 ML IV PRN (20:40)
[2021-06-06] MEDS ORDERED: EPIDURAL COMMENT XX SCH (20:40)
[2021-06-06] MEDS ORDERED: EPIDURAL/PCA KEYS XX PRN (20:40)
[2021-06-06] MEDS: FENTANYL/ROPIVACAINE/NACL BAG 100 ML EPIDURAL SCH (20:40)
[2021-06-07] VITALS (26 sets, daily range): BP systolic 81–152; BP diastolic 40–87
--- NOTE | 2021-06-07 01:02 | HPEPDOC ---
Obstetrical History & Physical General Date of Admission Jun 06, 2021 at 13:51 History of Present Illness 26-year-old G 1, P 0 at 38+3 weeks gestation. Presents with loss of clear fluid around 11 AM on 06/06/2021. Denies vaginal bleeding. Upon presentation she was not maine frequently or painfully. Reports regular movement. ROS: no KISER, cp, sob, fever/chills/nausea/vomiting. course: Uncomplicated PMH: None SH: Cholecystectomy in 2017 Meds: vitamin All: NKDA CUT FILE CLERK: No STI or dysplasia OB: G1 Sochx: No tobacco, alcohol or drug use FamHx: Colon cancer(maternal grandmother and maternal aunt) labs: Blood type A-, antibody screen negative, HepBsAg neg, HIV neg, rubella immune, Hep C antibody negative, RPR nonreactive, CT/GC neg, urine culture negative, 1 hour glucose challenge test 84, GBS negative imaging: no anomalies or placental abnormalities Past Medical History Allergies Coded Allergies: No Known Allergies (Unverified , 01/18/18) Medications Scheduled Omeprazole (Omeprazole) 40 Mg Capsule.dr, 1 CAP PO DAILY No.137/Iron/Folic Acd ( Vitamin Tablet) 1 Each Tablet, 1 TAB PO DAILY Miscellaneous Medications Acetaminophen (Tylenol) 325 Mg Tablet, 650 MG PO Physical Examination Physical Examination GENERAL: Alert and oriented times three. ABDOMEN: Gravid and non-tender to touch. FETUS: Is vertex (VTX) by sterile vaginal examination (SVE), and confirmed with bedside ultrasound. HEART RATE: Regular rate and rhythm. LUNGS: Clear to auscultation (CTA). EXTREMITIES: No edema. No clonus. SSE: Positive pooling, positive nitrazine/ferning SVE: 1 cm 50% -3 station EFM: Category 1 toco: Irregular contractions, rare Vital Signs/I&O Vital Signs Date Time Temp Pulse Resp B/P (MAP) Pulse Ox O2 Delivery O2 Flow Rate FiO2 06/06/21 23:17 98.8 71 98/68 (78) 06/06/21 18:38 16 98 Room Air Laboratory Data 24H LABS Laboratory Tests 2 06/06/21 13:59: Serology Scanned Report Hepatitis B Testing 06/06/21 14:42: Nucleated Red Blood Cells % (auto) 0.0, Coronavirus (COVID-19)(PCR) NEGATIVE CBC/BMP Laboratory Tests 06/06/21 14:42 Assessment/Plan Assessment 26-year-old G1, P0 at 38+4 weeks gestation with prelabor rupture of membranes at term. Reassuring maternal and status, no evidence of intraamniotic infection. Plan Admit and orient. Spear Fisher and consent. Labs and intravenous (IV) per unit protocol. Counseled on active management via Pitocin augmentation/induction of labor (IOL), and patient agrees to proceed with this plan. Anticipate ; if indicated STAN WRIGHT DO Jun 07, 2021 01:02
--- NOTE | 2021-06-07 01:17 | IPNPDOC ---
Obstetrical Progress Note Date of Service Jun 07, 2021 Subjective Patient is comfortable with her epidural. Small amount of bloody show. Continuing to leak fluid. Objective Vital Signs Date Time Temp Pulse Resp B/P (MAP) Pulse Ox O2 Delivery O2 Flow Rate FiO2 06/06/21 23:17 98.8 71 98/68 (78) 06/06/21 18:38 16 98 Room Air Assessment Heart Rate Tracing: Category I (With very short periods of category 2) Tocometer Contractions: Yes Frequency: every 2-5 min. Sterile Vaginal Examination Dilation: 5 cm Effacement (%): 90% Station: -1, 0 Cervical Consistency: Soft Cervical Position: Anterior Postion/Presentation: Cephalic presentation Assessment and Plan Anticipate: Vaginal Delivery Additional Comments Reassuring maternal status. Continue with Pitocin. STAN WRIGHT DO Jun 07, 2021 01:17
[2021-06-07] MEDS: FENTANYL/ROPIVACAINE/NACL BAG 100 ML EPIDURAL SCH (04:22)
[2021-06-07] MEDS ORDERED: fentaNYL 100 MCG/2 ML INJECTION (J3010) As Ordered ONE (06:32)
[2021-06-07] MEDS ORDERED: TRANEXAMIC ACID INJection 1,000 MG in NS 100 ML IV PRN (07:10)
[2021-06-07] MEDS ORDERED: ceFAZolin SOD 2 GM in IV 1 EA IV ONE (07:10)
[2021-06-07] MEDS ORDERED: METHYLERGONOVINE MALEATE 0.2 MG/ML VIAL (J2210) IM PRN (07:10)
[2021-06-07] MEDS ORDERED: CARBOPROST TROMETHAMINE 250 MCG/ML AMP IM PRN (07:10)
[2021-06-07] MEDS ORDERED: BICITRA 30ML SOLN UDC PO ONE (07:10)
[2021-06-07] MEDS ORDERED: AZITHROMYCIN INJ 500 MG, VIAL MATE ADAPTER 1 EACH in NS 250 ML IV ONE (07:10)
[2021-06-07] MEDS ORDERED: LIDOCAINE 2% W/EPINEPHRINE 20ML VIAL **PRES FREE As Ordered ONE (07:12)
--- NOTE | 2021-06-07 07:16 | IPNPDOC ---
Obstetrical Progress Note Date of Service Jun 07, 2021 Subjective Notified by RN that patient is making minimal to no progress/cervical dilation despite Pitocin. Pitocin had to be shut off, IV bolus given, oxygen administered by facemask, due to a persistent category 2 heart rate tracing. heart rate tracing improved category 1 shortly after these measures were taken. Objective Vital Signs Date Time Temp Pulse Resp B/P (MAP) Pulse Ox O2 Delivery O2 Flow Rate FiO2 06/07/21 06:07 95 137/81 (99) 06/07/21 05:10 98.1 06/06/21 18:38 16 98 Room Air Assessment Heart Rate Tracing: Category I Tocometer Contractions: Yes Frequency: every 2-5 min. Sterile Vaginal Examination Dilation: 5 cm Effacement (%): 90% Station: -1, 0 Cervical Consistency: other (Cervix is swollen with significant caput felt at level of the cervix) Postion/Presentation: Cephalic presentation Assessment and Plan Status: Reassuring Anticipate: Section Additional Comments Offered primary low transverse section due to arrest of dilation in the active phase of labor, in combination with inability to augment labor with Pitocin due to heart rate tracing changes when on Pitocin. Patient has been at 5 cm for over 6 hours. Risk benefits indications and alternatives of primary low transverse section were reviewed and informed consent was obtained. Preparations for the OR are being made. Anesthesia and pediatrics notified. STAN WRIGHT DO Jun 07, 2021 07:16
[2021-06-07] MEDS ORDERED: OXYTOCIN INJ 10 UNITS/ML VIAL (J2590) As Ordered ONE ×3 (07:26→08:37)
[2021-06-07] MEDS ORDERED: MORPHINE PRES-FREE INJ 10 MG/10 ML VIAL (J2274) As Ordered ONE (07:41)
[2021-06-07] MEDS ORDERED: ONDANSETRON 4MG/2ML VIAL As Ordered ONE (07:48)
[2021-06-07] MEDS ORDERED: METOCLOPRAMIDE INJ 10MG/2ML VIAL (J2765 PER 1) IV PRN ×2 (07:52→09:15)
[2021-06-07] MEDS ORDERED: NALOXONE INJ 0.4MG/1ML VIAL (J2310 PER 1MG) IV PRN ×2 (07:52)
[2021-06-07] MEDS ORDERED: ONDANSETRON 4MG/2ML VIAL IV PRN ×4 (07:52→09:15)
[2021-06-07] MEDS ORDERED: NALBUPHINE HCL 10 MG/ML AMP (J2300) IV PRN (07:52)
[2021-06-07] MEDS ORDERED: diphenhydrAMINE 50MG/ML VIAL (J1200) IV PRN (07:52)
[2021-06-07] MEDS ORDERED: METOCLOPRAMIDE INJ 10MG/2ML VIAL (J2765 PER 1) As Ordered ONE (08:10)
[2021-06-07] MEDS ORDERED: dexameTHASONE 4 MG/ML 1ML VIAL (J1100 PER 1MG) As Ordered ONE (08:10)
[2021-06-07] MEDS ORDERED: KETOROLAC 60MG 2ML VIAL As Ordered ONE (08:38)
[2021-06-07] MEDS ORDERED: ACETAMINOPHEN 1000MG 100ML IV BTL (OFIRMEV) (J0131 PER 10MG) As Ordered ONE (08:38)
[2021-06-07] MEDS ORDERED: ACETAMINOPHEN 500 MG TAB PO PRN (09:00)
[2021-06-07] MEDS ORDERED: LR 1,000 ML IV SCH ×2 (09:00→09:15)
[2021-06-07] MEDS ORDERED: RHOGAM 300 MCG (1500 IU) INJ (J2790) IM SCH (09:00)
[2021-06-07] MEDS ORDERED: OXYTOCIN DRIP 30 UNITS in IV 1 EA IV SCH ×2 (09:00→09:40)
[2021-06-07] MEDS ORDERED: SIMETHICONE 80MG CHEW TAB PO PRN (09:00)
[2021-06-07] MEDS ORDERED: MEASLES,MUMPS,RUBELLA VACCINE INJ (MMR-II) (90707) SC SCH (09:00)
--- NOTE | 2021-06-07 09:04 | ROOPDOC ---
[facility] Report Of Operation Report of Operation DATE OF PROCEDURE: 06/07/2021 PREPROCEDURE DIAGNOSES: Arrest of dilation in the active phase, category 2 heart rate tracing POSTPROCEDURE DIAGNOSES: Same PROCEDURE: Primary low transverse section SURGEON: José Clemente DO FACOG ANESTHESIA: Spinal ESTIMATED BLOOD LOSS: 500 mL. IV FLUIDS: 1400 mL LR URINE OUTPUT: 100 mL COMPLICATIONS: None. PREOPERATIVE ANTIBIOTICS: Ancef 2g IV x 1, azithromycin 500mg IV. COMPLICATIONS: none DATA: Apgars 9 and 9. Birthweight 3040 g, 6 lbs 11 oz. SPECIMENS: none PRIMARY INDICATION FOR : Arrest of dilation DESCRIPTION OF PROCEDURE: The patient was counseled on the risks, benefits, indications and alternatives of the procedure. Informed consent was obtained. She was taken to the operating room with IV running and placed on the operating table in the dorsal supine position with a leftward tilt. Regional anesthesia was found to be adequate. Sequential compression devices were placed on the lower extremities. A Botello catheter was placed under sterile conditions. She was prepared and draped in normal sterile fashion. A time out was performed per protocol. Regional anesthesia was again found to be adequate. A Pfannenstiel skin incision was made with the 10 blade. The 10 blade was used to dissect down to the level of the rectus sheath fascia. The rectus sheath pressure was incised midline and this was extended bilaterally with Sorensen scissors , and manual stretch. The rectus muscle bellies were dissected off the rectus sheath fascia superiorly and inferiorly using both sharp and blunt dissection. The midline was identified. The peritoneum was identified and entered digitally. The peritoneal opening was extended with manual stretch. The Mobius retractor was placed. The vesicouterine peritoneum was dissected with Metzenbaum scissors to create the bladder flap. A low transverse uterine incision was made with the 10 blade. This was extended with manual stretch. The amniotic sac was punctured, and clear fluid was noted. The baby delivered through the hysterotomy without difficulty. The cord was doubly clamped and cut, and the baby was handed off to awaiting care. data shown above. Cord blood obtained. The placenta was removed manually. The intrauterine cavity was cleared of all clot and debris. The hysterotomy was closed with 0 Vicryl in running locked fashion. This was reinforced with a second imbricating layer using 0 Vicryl in running fashion. Excellent hemostasis of the hysterotomy was noted. The pelvis was irrigated and the fluid suctioned. The Mobius retractor was removed. The peritoneum was closed with 3-0 Vicryl running fashion. The rectus muscle bellies were reapproximated with interrupted stitches using 3-0 Vicryl. The rectus muscles bellies were hemostatic. The rectus sheath fascia was closed with 0 Vicryl running fashion. The subcutaneous layer was irrigated and the fluid suctioned. Small bleeding vessels were cauterized with Bovie. Excellent hemostasis was noted. The subcutaneous layer was reapproximated with 3-0 Vicryl running fashion. Skin was closed with 3-0 Monocryl in subcuticular fashion. An Optifoam bandage was placed over the closed incision. Sponge, needle and instrument counts were correct per protocol throughout the procedure. The patient tolerated the entire procedure very well. She was transferred to the PACU in stable condition. DO JOY Abel JONATHAN R. DO Jun 07, 2021 09:04
[2021-06-07] MEDS ORDERED: IBUP80TA PO (09:08)
[2021-06-07] MEDS ORDERED: DOCU100C16 PO (09:08)
[2021-06-07] MEDS ORDERED: PERCOCET PO (09:08)
[2021-06-07] MEDS ORDERED: OXYTOCIN 30 UNITS IN 0.9% NaCl 500ML IV BAG (J2590) As Ordered ONE (09:13)
[2021-06-07] MEDS ORDERED: PERCOCET 5MG/325MG TAB PO PRN (09:15)
[2021-06-07] MEDS ORDERED: fentaNYL 100 MCG/2 ML INJECTION (J3010) IV PRN (09:15)
[2021-06-07] MEDS ORDERED: PERCOCET 5MG/325MG TAB As Ordered ONE (10:46)
[2021-06-07] MEDS: PRENATAL VITAMINS CHEWABLE TABLET PO SCH (11:40)
[2021-06-07] MEDS: OMEPRAZOLE 20 MG CAP PO SCH (11:40)
[2021-06-07] MEDS: DOCUSATE SODIUM 100MG CAPSULE PO SCH ×2 (11:41→21:01)
[2021-06-07] MEDS: KETOROLAC 30 MG/ML 1ML VIAL IV SCH ×2 (14:46→21:01)
[2021-06-07] MEDS ORDERED: INFLUENZA QUADRIVALENT PF VACCINE 0.5ML SYRINGE IM ONE (15:05)
[2021-06-07] MEDS: PERCOCET 5MG/325MG TAB PO PRN (17:49)
[2021-06-08 02:06] VITALS: BP 131/86
[2021-06-08] MEDS: KETOROLAC 30 MG/ML 1ML VIAL IV SCH (03:02)
[2021-06-08 05:56] VITALS: BP 143/91
[2021-06-08] MEDS: PRENATAL VITAMINS CHEWABLE TABLET PO SCH (08:20)
[2021-06-08] MEDS: OMEPRAZOLE 20 MG CAP PO SCH (08:20)
[2021-06-08] MEDS: DOCUSATE SODIUM 100MG CAPSULE PO SCH ×2 (08:20→20:21)
[2021-06-08] MEDS: PERCOCET 5MG/325MG TAB PO PRN ×2 (08:22→15:32)
[2021-06-08 08:32] LABS: HEMATOCRIT 27.3 % (36.0-47.0); HEMOGLOBIN 9.1 g/dl (12.0-15.5); MEAN CORPUSCULAR HEMOGLOBIN 29.5 pg (27.0-33.0); MEAN CORPUSCULAR HGB CONC 33.3 g/dl (32.0-36.5); MEAN CORPUSCULAR VOLUME 88.6 fl (80.0-96.0); PLATELET COUNT, AUTOMATED 140 10^3/uL (150-450); RED BLOOD COUNT 3.08 10^6/uL (4.00-5.40); WHITE BLOOD COUNT 14.2 10^3/uL (4.0-10.0)
[2021-06-08 10:01] VITALS: BP 126/81
--- NOTE | 2021-06-08 10:09 | IPNPDOC ---
Progress Note Date of Service: Jun 08, 2021 Day#: 1 Progress Note SUBJECT: Patient reports she is doing well. She has been ambulating and voiding without any issues. Denies dizziness with ambulation. She reports she is without any issues. OBJECTIVE: VITAL SIGNS: see below. Alert and oriented times three. Respiratory rate is regular without any use of accessory muscles. Abdomen: Fundus firm. Dressing intact. Minimal lochia. ASSESSMENT:Day 1 postoperative PLAN: 1. Continue supportive nursing care. 2. Patient may shower today. 3. Anticipate discharge to home tomorrow. VS, I&O, 24H, Fishbone Vital Signs/I&O Vital Signs Date Time Temp Pulse Resp B/P (MAP) Pulse Ox O2 Delivery O2 Flow Rate FiO2 06/08/21 10:01 97.2 90 18 126/81 (96) 98 Room Air I&O- Last 24 Hours up to 6 AM 06/08/21 06:00 Intake Total 2020 ml Output Total 1475 ml Balance 545 ml Laboratory Data 24H LABS Laboratory Tests 2 06/08/21 08:17: Nucleated Red Blood Cells % (auto) 0.0 CBC/BMP Laboratory Tests 06/08/21 08:17 ALYSSA MIXON CNM Jun 08, 2021 10:09
[2021-06-08] MEDS: IBUPROFEN 800 MG TAB PO SCH ×2 (12:27→20:21)
[2021-06-08 14:00] VITALS: BP 105/60
[2021-06-08 18:09] VITALS: BP 121/79
[2021-06-08 22:32] VITALS: BP 119/74
[2021-06-09] MEDS: PERCOCET 5MG/325MG TAB PO PRN ×2 (01:38→08:35)
[2021-06-09 02:13] VITALS: BP 118/73
[2021-06-09] MEDS: IBUPROFEN 800 MG TAB PO SCH ×2 (03:54→12:07)
[2021-06-09 05:46] VITALS: BP 121/77
[2021-06-09] MEDS: PRENATAL VITAMINS CHEWABLE TABLET PO SCH (08:34)
[2021-06-09] MEDS: DOCUSATE SODIUM 100MG CAPSULE PO SCH (08:34)
[2021-06-09] MEDS: OMEPRAZOLE 20 MG CAP PO SCH (08:38)
[2021-06-09] MEDS ORDERED: INFLUENZA QUADRIVALENT PF VACCINE 0.5ML SYRINGE IM ONE (09:00)
--- NOTE | 2021-06-09 15:43 | OBDS ---
[facility] Obstetrical Discharge Sum. Obstetrical Discharge Summary Date: Jun 09, 2021 Time: 15:39 : 1 Term: 1 Pre-term: 0 Abortions: 0 Livin VDRL: Non-Reactive Rh: Positive Rubella: Immune Delivery Primary low transverse section Anesthesia: Regional Anesthesia A/P, Post Course List any complications Admission diagnosis: Labor Discharge diagnosis: Postoperative status post Condition at Discharge: Stable Discharge Instructions: Call with heavy bleeding, soaking through more than one pad an hour for two hours straight. Call with severe pain not controlled with medications. Call with fevers > 100.4. Nothing in the vagina for 6 weeks. Activity: As tolerated. No driving while taking narcotics Diet: as tolerated Medications: see med rec Follow-up: 2 week incision check MARY ANNE MILTON MD Jun 09, 2021 15:43
== END 2021-06-09 13:30 | disposition home or self-care (01) | DRG 540 ==
LOC: M LDO 13:04 → M LDI 13:51 → M OBS 06-07 14:30
PROVIDERS: ADMIT Obstetrics & Gynecology; ATTEND Obstetrics & Gynecology
PROC: 10D00Z1 Extraction of Products of Conception, Low, Open Approach (ICD-10-PCS; principal; 2021-06-07 07:45)
DX: O62.0 Primary inadequate contractions (principal); Z37.0 Single live birth; Z3A.38 38 weeks gestation of pregnancy

== ENCOUNTER → 2021-10-12 | Outpatient (REF) | payer OTHER ==
[~2021-10-12] MED LIST changes: +ACET-907 PO; +DOCU100C16 PO; +IBUP80TA PO; +OMEP40CA4 PO; +PERCOCET PO; +PRENTAB9 PO
== END ==
LOC: M SFHCWAGY 13:07
PROVIDERS: ATTEND Obstetrics & Gynecology
DX: Z12.4 Encounter for screening for malignant neoplasm of cervix (principal); Z77.9 Other contact with and (suspected) exposures hazardous to health

== ENCOUNTER → 2022-11-04 | Outpatient (REF) | payer OTHER ==
[2022-11-04 15:05] LABS: BLOOD UREA NITROGEN 18 MG/DL (9-23); CALCIUM LEVEL 9.1 MG/DL (8.5-10.1); CARBON DIOXIDE LEVEL 28 MMOL/L (20-31); CHLORIDE LEVEL 106 MMOL/L (98-107); CREATININE FOR GFR 0.62 MG/DL (0.55-1.30); GLOMERULAR FILTRATION RATE > 60.0 (>60); GLUCOSE, FASTING 59 MG/DL (60-100); PHOSPHORUS LEVEL 2.5 MG/DL (2.5-4.9); POTASSIUM SERUM 4.1 MMOL/L (3.5-5.1); SODIUM LEVEL 142 MMOL/L (136-145)
[2022-11-04 15:07] LABS: TOTAL 25(OH) VITAMIN D 30.6 NG/ML (20.0-100.0)
== END ==
LOC: M LAB REF 14:18
PROVIDERS: ATTEND Nurse Practitioner Family
DX: R29.898 Other symptoms and signs involving the musculoskeletal system (principal); E55.9 Vitamin D deficiency, unspecified

== ENCOUNTER 2022-12-29 18:38 | Emergency (ER) | payer OTHER ==
[~2022-12-29] VITALS: Ht 157.5 cm; Wt 79.2 kg
[2022-12-29] MEDS ORDERED: TRINTAB11 (18:46)
[2022-12-29] MEDS ORDERED: ACET-683 PO (18:46)
[2022-12-29] MEDS ORDERED: diazePAM 5MG TABLET PO ONE ×2 (22:10)
[2022-12-29] MEDS ORDERED: KETOROLAC 60MG 2ML VIAL IM ONE (22:10)
[2022-12-29] MEDS ORDERED: LIDOCAINE 5% (LIDODERM) PATCH TD ONE (22:10)
[2022-12-29] MEDS ORDERED: NAPR-837 PO (22:18)
[2022-12-29] MEDS ORDERED: ASPE4PAD TOP (22:18)
[2022-12-29] MEDS ORDERED: METH-1165 PO (22:18)
[2022-12-29 22:22] VITALS: BP 124/70
== END 2022-12-29 22:23 | disposition home or self-care (01) ==
LOC: M ED 18:38
DX: M54.2 Cervicalgia (principal); Z79.1 Long term (current) use of non-steroidal anti-inflammatories (NSAID); Z79.899 Other long term (current) drug therapy
CPT/HCPCS: 96372; 99283; J1885

== ENCOUNTER → 2023-12-15 | Outpatient (REF) | payer OTHER ==
[~2023-12-15] MED LIST changes: +ACET-683 PO; +ASPE4PAD TOP; +METH-1165 PO; +NAPR-837 PO; +TRINTAB11
[2023-12-15 12:34] LABS: BASO # 0.1 10^3/uL (0.0-0.2); BASO % 1.1 % (0.0-1.0); EOS # 0.3 10^3/uL (0.0-0.5); EOS % 4.7 % (0.0-3.0); HEMATOCRIT 39.3 % (36.0-47.0); HEMOGLOBIN 13.2 g/dl (12.0-15.5); LYMPH # 1.8 10^3/uL (1.5-5.0); LYMPH % 32.8 % (24.0-44.0); MEAN CORPUSCULAR HEMOGLOBIN 30.2 pg (27.0-33.0); MEAN CORPUSCULAR HGB CONC 33.6 g/dl (32.0-36.5); MEAN CORPUSCULAR VOLUME 89.9 fl (80.0-96.0); MONO # 0.2 10^3/uL (0.0-0.8); MONO % 3.8 % (2.0-8.0); NEUTROPHILS # 3.2 10^3/uL (1.5-8.5); NEUTROPHILS % 57.4 % (36.0-66.0); PLATELET COUNT, AUTOMATED 207 10^3/uL (150-450); RED BLOOD COUNT 4.37 10^6/uL (4.00-5.40); WHITE BLOOD COUNT 5.5 10^3/uL (4.0-10.0)
[2023-12-15 13:06] LABS: ALBUMIN 3.7 G/DL (3.2-5.2); ALKALINE PHOSPHATASE 54 U/L (46-116); ALT/SGPT 25 U/L (7.0-40); AST/SGOT 22 U/L (<34); BILIRUBIN,TOTAL 0.4 MG/DL (0.3-1.2); BLOOD UREA NITROGEN 22 MG/DL (9-23); CALCIUM LEVEL 9.5 MG/DL (8.5-10.1); CARBON DIOXIDE LEVEL 28 MMOL/L (20-31); CHLORIDE LEVEL 108 MMOL/L (98-107); CHOLESTEROL LEVEL 191 MG/DL (<200); CREATININE FOR GFR 0.64 MG/DL (0.55-1.30); GLOMERULAR FILTRATION RATE > 60.0 (>60); GLUCOSE, FASTING 80 MG/DL (60-100); HDL CHOLESTEROL 57.8 MG/DL (>40); NON-HDL-C 133.2 MG/DL; POTASSIUM SERUM 4.5 MMOL/L (3.5-5.1); SODIUM LEVEL 137 MMOL/L (136-145); TOTAL PROTEIN 6.9 G/DL (5.7-8.2); TRIGLYCERIDES LEVEL 136 MG/DL (<150)
[2023-12-15 13:07] LABS: TOTAL 25(OH) VITAMIN D 24.7 NG/ML (20.0-100.0)
== END ==
LOC: M LAB REF 11:53
PROVIDERS: ATTEND Nurse Practitioner Family
DX: E66.3 Overweight (principal); E55.9 Vitamin D deficiency, unspecified; R53.83 Other fatigue

== ENCOUNTER → 2024-12-14 | Outpatient (REF) | payer OTHER | LOC: M LAB REF 13:46 | PROVIDERS: ATTEND Nurse Practitioner Family | DX: E66.3 Overweight (principal); R53.83 Other fatigue; E55.9 Vitamin D deficiency, unspecified; Z53.9 Procedure and treatment not carried out, unspecified reason ==

== ENCOUNTER → 2025-05-02 | Outpatient (REF) | payer OTHER ==
[~2025-05-02] MED LIST changes: -IBUP-1022 PO; -IBUP1TAB6 PO; +IBUP600T42 PO; +SFHIBU600 PO
== END ==
LOC: M PLALAB 08:27
PROVIDERS: ATTEND Nurse Practitioner Family
DX: Z53.9 Procedure and treatment not carried out, unspecified reason (principal)

== ENCOUNTER → 2025-05-02 | Outpatient (CLI) | payer OTHER ==
[2025-05-02 11:08] LABS: PLATELET COUNT, AUTOMATED 230 10^3/uL (150-450)
[2025-05-02 12:05] LABS: HIV 1&2 SCREEN NEGATIVE (NEGATIVE)
[2025-05-02 12:13] LABS: Trichomonas vaginalis (AMP) NOT DETECTED (NEGATIVE)
[2025-05-02 12:14] LABS: HEPATITIS C VIRUS ABY INDEX < 0.02 INDEX (<0.8)
[2025-05-02 12:37] LABS: GC DNA AMPLIFICATION NEGATIVE (NEGATIVE)
== END ==
LOC: M PLALAB 09:09
PROVIDERS: ATTEND Nurse Practitioner Family
DX: Z34.80 Encounter for supervision of other normal pregnancy, unspecified trimester (principal)

== ENCOUNTER → 2025-06-28 | Outpatient (CLI) | payer OTHER | LOC: M WHC 15:07 | PROVIDERS: ATTEND Student in an Organized Health Care Education/Training Program | DX: Z34.82 Encounter for supervision of other normal pregnancy, second trimester (principal); Z3A.18 18 weeks gestation of pregnancy ==

== ENCOUNTER → 2025-08-19 | Outpatient (CLI) | payer OTHER ==
[2025-08-19 19:10] LABS: GLUCOSE CHALLENGE TEST 1 HOUR 86 MG/DL (LESS THAN 140)
[2025-08-19 19:18] LABS: PLATELET COUNT, AUTOMATED 228 10^3/uL (150-450)
[2025-08-19 21:45] LABS: Trichomonas vaginalis (AMP) NOT DETECTED (NEGATIVE)
[2025-08-19 22:09] LABS: GC DNA AMPLIFICATION NEGATIVE (NEGATIVE)
[2025-08-21 05:24] LABS: HIV 1&2 SCREEN NEGATIVE (NEGATIVE)
[2025-08-21 05:33] LABS: HEPATITIS C VIRUS ABY INDEX 0.04 INDEX (<0.8)
== END ==
LOC: M PLALAB 12:52
PROVIDERS: ATTEND Obstetrics & Gynecology
DX: Z34.82 Encounter for supervision of other normal pregnancy, second trimester (principal)